=== PATIENT | male | born 1990 | race Hispanic/Latino ===

== ENCOUNTER 2020-06-29 07:10 | Inpatient (IN) | payer OTHER ==
[2020-06-29 07:43] LABS: #Basophils 0.1 thou/uL (0.0-0.2); #Lymphocytes 1.7 thou/uL (1.20-3.40); #Monocytes 0.8 thou/uL (0.11-0.59); #Neutrophils 13.2 thou/uL (1.40-6.50); %Basophils 0.4 % (0.0-1.0); %Eosinophils 0.2 % (0.0-10.0); %Lymphocytes 10.8 % (21.0-51.0); %Monocytes 5.2 % (0.0-10.0); %Neutrophils 83.4 % (42.0-75.0); Hemoglobin 14.6 g/dL (14.0-18.0); Mean Corpuscular HGB CONC 34.1 g/dL (32.0-36.0); Mean Corpuscular Hemoglobin 31.4 pg (27.0-31.0); Mean Corpuscular Volume 91.9 fL (78.0-98.0); Mean Platelet Volume 7.3 fL (7.4-10.4); Platelet Count 283 thou/uL (130-400); RBC Distribution Width 12.1 % (11.5-14.5); Red Blood Cell (RBC) Count 4.67 mill/uL (4.70-6.10); White Blood Cell (WBC) Count 15.8 thou/uL (4.8-10.8)
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
[2020-06-29] MEDS ORDERED: Dexamethasone 10 MG/ML VIAL ONE (07:45)
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
[2020-06-29 08:04] LABS: ALT (SGPT) 16 U/L (8-55); AST (SGOT) 25 U/L (5-34); Acetaminophen Less than 6.0 mcg/mL (10.0-30.0); Albumin 4.3 g/dL (3.5-5.0); Alcohol 186 mg/dL (Less than 10); Alkaline Phosphatase 63 U/L (40-110); Anion Gap 18 mmol/L (10-20); BUN (Urea Nitrogen) 10 mg/dL (8.9-20.6); Bilirubin, Total 0.5 mg/dL (0.2-1.2); Calc. Creatinine Clearance 0 mL/min (70-130); Calcium 8.5 mg/dL (7.8-10.44); Carbon Dioxide 20 mmol/L (22-29); Chloride 109 mmol/L (98-107); Globulin 2.9 g/dL (2.4-3.5); Glucose 157 mg/dL (70-105); Potassium 4.2 mmol/L (3.5-5.1); Protein, Total 7.2 g/dL (6.0-8.3); Salicylate Less than 8.0 mg/dL (15.0-30.0); Sodium 143 mmol/L (136-145)
[2020-06-29] MEDS ORDERED: Sodium Chloride 0.9% 10 ML ONE (08:11)
[2020-06-29] MEDS ORDERED: Fentanyl 100 MCG/2 ML VIAL ONE ×3 (08:12→12:50)
[2020-06-29] MEDS ORDERED: Midazolam HCl 2 mg/2 ml Vial ONE (08:12)
[2020-06-29 08:32] LABS: INR-International Normal Ratio 1.1; Prothrombin Time 14.5 sec (12.0-14.7)
[2020-06-29] MEDS ORDERED: Norepinephrine 4 MG/4 ML VIAL ONE ×2 (08:52→08:55)
[2020-06-29 09:00] LABS: Amphetamine Not Detected (NotDetected); Barbiturates Screen Not Detected (NotDetected); Benzodiazepine Screen Not Detected (NotDetected); Cocaine Metabolite Screen Detected (NotDetected); Medtox Control Line Valid? VALID (VALID); Medtox Reader # READER 4; Methadone Not Detected (NotDetected); Methamphetamine Not Detected (NotDetected); Opiate Screen Not Detected (NotDetected); Oxycodone Screen Not Detected (NotDetected); Phencyclidine (PCP) Not Detected (NotDetected); THC/Cannabinoid Screen Not Detected (NotDetected); Tricyclic Screen Not Detected (NotDetected)
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
[2020-06-29] MEDS ORDERED: Iopamidol-370 76% 500 ML 1 ML ONE ×2 (09:21→09:24)
[2020-06-29] MEDS ORDERED: Iopamidol 370 76% 100 ML VIAL ONE (09:24)
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
[2020-06-29 09:34] LABS: SARS-CoV-2 NAA Rapid Test Not Detected (NotDetected)
[2020-06-29] MEDS ORDERED: Rocuronium Bromide 50 MG/5 ML VIAL ONE (10:08)
[2020-06-29] MEDS ORDERED: SUGAMMADEX SODIUM 200 MG/2 ML VIAL ONE (11:38)
[2020-06-29] MEDS ORDERED: HumaLOG 300 UNITS/3 ML VIAL SC PRN (11:57)
[2020-06-29] MEDS ORDERED: Ondansetron ODT 4 MG TAB PO PRN (11:57)
[2020-06-29] MEDS ORDERED: Dextrose 5% in Water 1,000 ML IV PRN (11:57)
[2020-06-29] MEDS ORDERED: Dextrose 50% Abboject 50 ML SYRINGE SLOW IVP PRN (11:57)
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
[2020-06-29] MEDS ORDERED: Ondansetron HCl/PF 4 MG/2 ML Vial IVP PRN (12:11)
[2020-06-29] MEDS ORDERED: Promethazine HCl 25 MG/ML VIAL IM PRN (12:11)
[2020-06-29] MEDS ORDERED: Promethazine HCl 25 MG/ML VIAL SLOW IVP PRN (12:11)
--- NOTE | 2020-06-29 12:12 | OP ---
DATE OF PROCEDURE: 06/29/2020 OVEN TENDER BAGELS: Kirill. PROCEDURES PERFORMED: Closed reduction with Mejias-Wells tongs and traction C6-C7, anterior cervical diskectomy C6-C7, interbody arthrodesis, anterior cervical spine instrumentation C6-C7, demineralized bone matrix, local morselized autograft; posterior approach C6-C7 laminectomies, C6-C7 posterolateral arthrodesis, lateral mass screws C6-C7, demineralized bone matrix, local morselized autograft. DESCRIPTION OF PROCEDURE: The patient was brought to the operating room and intubated under fluoroscopy. We placed the Mejias-Wells tongs and placing distraction under fluoroscopy with traction also on the arms. We were able to obtain meaningful reduction of the C6-C7 fracture dislocation. It should be noted that it is very hard to visualize this level given the patient's very large body habitus. We then placed 10 pounds of traction to maintain this alignment and position the patient appropriately for anterior cervical diskectomy and fusion. Right precervical incision was made and dissected medial to the sternocleidomastoid muscle, identified the anterior cervical spinal, and the level was confirmed by x-ray. Again, given his large body habitus, the exposure was difficult and the x-ray visualization was poor. Ultimately, C6-C7 was exposed. The C7 vertebral body was badly damaged with significant fractures of the central and anterior vertebral body. The superior aspect of these fractures was debrided. It did seem that we obtained meaningful reduction of C6 and C7, but there was still moderate anterolisthesis of C6 and C7 as well as loss of substance of the C7 body. We debrided the intervertebral disk down to the level of the dura and it was clear that there has been a durotomy and CSF was leaking through this related to the trauma. We did, however, completely decompress from anteriorly. Palpation of the posterior vertebral bodies at C6 and C7 suggested reasonable alignment in this regard. There was not enough substance of the C7 superior endplate to place an intervertebral device. I placed an anterior plate at C6 and C7 using two 14-mm screws at each level. The wound was then extensively irrigated. MAC hemostasis was secured. The wound was closed in anatomic layers over drain. A Nadeem buyer tobacco head was then placed. The patient was rolled in a prone position on gel-filled chest rolls with the head fixed in a neutral position. A midline incision was made exposing C2 through T1 and the level was confirmed by x-ray, although again we could only visualize approximately C3 given the large body habitus. Exposure revealed a complete disruption of C6 posterior elements with floating bony elements. On the left, there is obvious disruption of the dura and floating neural elements in the posterior musculature. We performed complete C7 and complete C6 laminectomy and completely decompressed the central spinal canal. After complete decompression has been secured, DuraSeal fibrin sealant was laid over the durotomies. We next placed lateral mass screws on the right at C6 and C7. The left-sided lateral masses were too damaged to adequately place any hardware. After the screws have been placed at right C6 and right C7, the karyn was secured, connected by nuts, which were final tightened. The wound was then extensively irrigated, MAC hemostasis was secured. A combination of demineralized bone matrix and local morselized autograft was laid over the right posterolateral surface of the purpose of arthrodesis. Vancomycin powder was applied and the wound was closed in anatomic layers over drain. Job ID: [id number]
[2020-06-29] MEDS ORDERED: PHENYLEPHRINE-NS 100 MCG/ML 10 ML SYRINGE ONE (12:38)
[2020-06-29] MEDS ORDERED: PROPOFOL 200 MG/20 ML VIAL ONE (12:38)
[2020-06-29] MEDS ORDERED: Glycopyrrolate 0.2 MG/ML 5 ML SYRINGE ONE (12:38)
[2020-06-29] MEDS ORDERED: ePHEDrine 50 MG/ML VIAL ONE (12:38)
[2020-06-29] MEDS ORDERED: Rocuronium Bromide 10 MG/ML (10ML VIAL) ONE (12:38)
[2020-06-29] MEDS ORDERED: Lidocaine 1% PF 5 ML VIAL ONE (12:38)
[2020-06-29] MEDS ORDERED: Meperidine HCl/PF 25 MG/ML VIAL ONE (12:43)
[2020-06-29] MEDS ORDERED: Ondansetron PF 4 MG/2 ML Vial ONE (13:54)
[2020-06-29] MEDS: Ondansetron PF 4 MG/2 ML Vial IVP PRN ×2 (14:15→20:08)
--- NOTE | 2020-06-29 14:51 | CT ---
CT angiogram neck: 06/29/2020 HISTORY: Recent surgical correction of cervical spine fracture dislocation TECHNIQUE: Axial CT imaging at 1.25 mm intervals through the neck with intravenous contrast. Coronal and sagittal 3-D reformatted imaging obtained. FINDINGS: There is an obliquely oriented mildly displaced fracture at the anterior inferior aspect of the C2 vertebral body. New anterior discectomy and fusion hardware is present at the C6-7 level. There appears to be an osseous fragment measuring 9 mm in craniocaudal dimension within the facet hipolito nt on the left at C6-7 which may signify a fracture fragment involving the C7 left superior articular facet. Posterior pedicle screw with vertically oriented interlocking karyn present on the rig ht at the C6-7 level. The visualized lung apices demonstrate no acute findings. The visualized paranasal sinuses and mastoid air cells appear well-aerated. The retroantral fat and t he parapharyngeal fat appears grossly unremarkable bilaterally as do the parotid glands and the submandibular glands. There is postoperative subcutaneous gas within the neck on the right. A postope rative drain is present, terminating posterior to the right lobe of the thyroid gland. Numerous cutaneous sergio are seen posteriorly. There is a postsurgical drain posteriorly, terminating at the axial level of the C1-2 articulation. Origin of the innominate artery, right subclavian artery, right common carotid artery, left common ca rotid artery, and left subclavian artery appears unremarkable. The origin of bilateral vertebral arteries appears unremarkable. Evaluation of the proximal left vertebral artery is severely degraded by streak artifact from postope rative hardware. In addition, patient body habitus and a prevertebral hematoma associated with recent trauma limits assessment of bilateral proximal vertebral arteries. The vertebral arteries are patent. Evaluation for dissection from the axial level of the vertebral artery origin through the axial level of the C5-6 interspace is nondiagnostic. Cephalad to this level bilateral vertebral arter ies appear patent. On the basis of NASCET criteria there is no hemodynamically significant stenosis involving the common carotid artery or the internal carotid artery on either side. The internal carotid artery and common carotid artery appear grossly unremarkable bilaterally. IMPRESSION: Postoperative changes treating fracture dislocation at C6-7 as above. C2 vertebral body f racture again noted. Of note, the vertebral arteries cannot be adequately assessed from there origin through the C5-6 axia l level secondary to streak artifact from new postoperative hardware as well as beam hardening artifact associated with the patient body habitus and obscuration on the basis of prevertebral hemato ma. A follow-up CT angiogram or conventional angiogram would be required to evaluate the proximal vertebral arteries. Cephalad to the postoperative level the vertebral arteries appear intact.
[2020-06-29] MEDS: Sodium Chloride 0.9% 1,000 ML IV SCH ×2 (14:52→20:41)
[2020-06-29 14:58] VITALS: BMI 44.6
[2020-06-29] MEDS ORDERED: FLU VACC QS2020-21(6MOS UP)/PF 60 MCG/0.5 ML SYRINGE IM ONE (15:30)
[2020-06-29] MEDS: Acetaminophen 500 MG TAB PO SCH ×3 (15:48→21:23)
[2020-06-29] MEDS: traMADol HCl 50 MG TAB PO SCH ×3 (15:48→21:24)
[2020-06-29] MEDS: Oxazepam 10 MG CAP PO SCH ×2 (15:48→20:08)
[2020-06-29] MEDS: CEFAZOLIN 2 GM in Premix Bag 1 BAG IVPB SCH ×2 (15:49→21:23)
[2020-06-29] MEDS: Famotidine/PF 20 mg/2ml Vial SLOW IVP SCH (20:08)
[2020-06-29] MEDS: Gabapentin 300 MG CAP PO SCH (20:08)
[2020-06-29] MEDS ORDERED: Sodium Chloride 0.9% 1,000 ML IV SCH (21:45)
[2020-06-29] MEDS: traMADol HCl 50 MG TAB PO PRN (23:57)
[2020-06-30] MEDS: Morphine 2 MG/ML VIAL SLOW IVP PRN (02:59)
[2020-06-30] MEDS: traMADol HCl 50 MG TAB PO SCH ×4 (04:23→21:56)
[2020-06-30] MEDS: Acetaminophen 500 MG TAB PO SCH ×4 (04:24→21:57)
[2020-06-30] MEDS: Oxazepam 10 MG CAP PO SCH ×3 (04:36→19:59)
[2020-06-30 04:38] LABS: #Basophils 0.1 thou/uL (0.0-0.2); #Lymphocytes 1.8 thou/uL (1.20-3.40); #Monocytes 1.5 thou/uL (0.11-0.59); #Neutrophils 9.9 thou/uL (1.40-6.50); %Basophils 0.5 % (0.0-1.0); %Lymphocytes 13.5 % (21.0-51.0); %Monocytes 11.1 % (0.0-10.0); %Neutrophils 74.9 % (42.0-75.0); Hemoglobin 11.8 g/dL (14.0-18.0); Mean Corpuscular HGB CONC 33.4 g/dL (32.0-36.0); Mean Corpuscular Hemoglobin 30.7 pg (27.0-31.0); Mean Corpuscular Volume 91.7 fL (78.0-98.0); Mean Platelet Volume 7.2 fL (7.4-10.4); Platelet Count 237 thou/uL (130-400); RBC Distribution Width 12.2 % (11.5-14.5); Red Blood Cell (RBC) Count 3.85 mill/uL (4.70-6.10); White Blood Cell (WBC) Count 13.3 thou/uL (4.8-10.8)
[2020-06-30] MEDS: Sodium Chloride 0.9% 1,000 ML IV SCH ×2 (04:44→09:01)
[2020-06-30 04:58] LABS: Phosphorus 3.7 mg/dL (2.3-4.7)
[2020-06-30 05:01] LABS: Anion Gap 14 mmol/L (10-20); BUN (Urea Nitrogen) 15 mg/dL (8.9-20.6); Calc. Creatinine Clearance 172 mL/min (70-130); Calcium 7.4 mg/dL (7.8-10.44); Carbon Dioxide 22 mmol/L (22-29); Chloride 106 mmol/L (98-107); Glucose 126 mg/dL (70-105); Magnesium 1.5 mg/dL (1.6-2.6); Sodium 138 mmol/L (136-145)
[2020-06-30] MEDS ORDERED: Magnesium Sulfate 3 GM in Sodium Chloride 0.9% 250 ML 250 ML IVPB SCH (05:30)
[2020-06-30] MEDS: CEFAZOLIN 2 GM in Premix Bag 1 BAG IVPB SCH ×3 (05:48→21:57)
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
[2020-06-30] MEDS: Famotidine/PF 20 mg/2ml Vial SLOW IVP SCH ×2 (08:42→19:59)
[2020-06-30] MEDS: Gabapentin 300 MG CAP PO SCH ×2 (08:43→19:59)
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
--- NOTE | 2020-06-30 09:43 | PRG ---
DATE OF SERVICE: 06/30/2020 SUBJECTIVE: The patient is now postoperative day #1, status post C6-C7 fracture dislocation requiring C6-C7 anterior and posterior decompression and fusion. We did get a CTA following the surgery. Unfortunately, this is not diagnostic considering streak artifact at the level of the hardware. He had few KING drains placed intraoperatively. The anterior KING put out 110 mL overnight and the posterior KING put out 60 mL overnight. The patient has been monitored closely in the ICU without overnight events. I visited the patient at the ICU this morning. OBJECTIVE: On exam, his vital signs are stable. He has good motor function in the proximal arms, but is quite weak particularly in the hands and wrist. He has some dysesthesias in the hand. He has very minimal sensation from approximately the nipple line down. No appreciated motor function in the lower extremities at this time. His Nikolski J collar appears to be fitting appropriately. PLAN: We will leave his KING drains in place and would continue to recommend that we hold any anticoagulation for now. I feel that he can be transitioned out the ICU to the Med/Surg floor, and we will begin to mobilize slowly. The patient will require rehab and we will consult Case Management to assist with this process. Job ID: [id number]
--- NOTE | 2020-06-30 10:15 | PRG ---
DATE OF SERVICE: 06/30/2020 SUBJECTIVE: Mr. Petersen is resting comfortably. He is having neck pain. He has good proximal strength in the arms and reasonable C7 level of motor function. He has complete distal paraplegia and sensory loss. CT angiography was limited by artifact, but did not reveal any significant vascular lesion. The degree of alignment of the cervical spine is excellent. IMPRESSION AND PLAN: Fracture dislocation of C6-7 with paraplegia. Structural surgical result is satisfactory, but I am not optimistic for neurologic recovery. We will begin rehab planning and remove the drains when able. Job ID: [id number]
[2020-06-30] MEDS: Cyclobenzaprine 10 MG TAB PO PRN ×2 (11:55→21:57)
[2020-06-30] MEDS: traMADol HCl 50 MG TAB PO PRN (19:58)
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
[2020-06-30] MEDS ORDERED: Sodium Chloride 0.65% Nasal 44 ML BOT EA NARE PRN (23:57)
[2020-07-01] MEDS: Morphine 2 MG/ML VIAL SLOW IVP PRN (00:54)
[2020-07-01] MEDS: Sodium Chloride 0.9% 1,000 ML IV SCH ×2 (00:55→04:39)
[2020-07-01] MEDS: Oxazepam 10 MG CAP PO SCH ×3 (04:37→21:04)
[2020-07-01] MEDS: Acetaminophen 500 MG TAB PO SCH ×4 (04:37→21:04)
[2020-07-01] MEDS: traMADol HCl 50 MG TAB PO PRN (04:38)
[2020-07-01] MEDS: traMADol HCl 50 MG TAB PO SCH ×5 (04:38→21:04)
[2020-07-01] MEDS: CEFAZOLIN 2 GM in Premix Bag 1 BAG IVPB SCH ×3 (04:59→21:05)
--- NOTE | 2020-07-01 07:20 | PRG ---
DATE OF SERVICE: 07/01/2020 SUBJECTIVE: The patient is now postoperative day #2, status post anterior and posterior C6-C7 decompression and fusion. He has had [address] Output has trended down, it now appears more consistent with CSF rather than blood. He reports subjective increased sensation in the lower extremities. OBJECTIVE: On exam this morning, he is awake, no acute distress. Has been afebrile. He has good proximal motion of the upper extremities, but is quite weak in the hands and the wrists. In the lower extremities, no appreciated motor function is noted. No sensation present to light touch. Incisions are clean, dry, and intact. There is serosanguineous fluid in both of the bulbs. PLAN: We will go ahead and remove both his KING drains. We will continue to work with PT, OT, and patient will need spinal rehab. Job ID: [id number]
[2020-07-01] MEDS: Gabapentin 300 MG CAP PO SCH (10:00)
[2020-07-01] MEDS: Folic Acid 1 MG TAB PO SCH (10:00)
[2020-07-01] MEDS: Famotidine 20 MG TAB PO SCH ×2 (10:01→21:05)
[2020-07-01] MEDS: Thiamine 100 MG TAB PO SCH (10:02)
[2020-07-01] MEDS: Multivit, Therapeutic 1 TAB PO SCH (10:04)
[2020-07-01] MEDS: Pregabalin 75 MG CAP PO SCH (21:04)
[2020-07-02] MEDS: Acetaminophen 500 MG TAB PO SCH ×4 (05:00→21:27)
[2020-07-02] MEDS: traMADol HCl 50 MG TAB PO SCH ×4 (05:00→21:26)
[2020-07-02] MEDS: CEFAZOLIN 2 GM in Premix Bag 1 BAG IVPB SCH (05:01)
[2020-07-02] MEDS: Oxazepam 10 MG CAP PO SCH ×3 (05:01→21:26)
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
--- NOTE | 2020-07-02 07:50 | PRG ---
DATE OF SERVICE: 07/02/2020 SUBJECTIVE: I visited the patient on the floor. He is resting comfortably overnight. He has had no additional changes in his motor or sensation. His KING drains were removed yesterday and he has not had any incisional drainage issues. OBJECTIVE: This morning, vital signs are stable. He has been afebrile overnight. Incision is clean, dry, and intact. He is able to move the proximal arms and the shoulders, the elbows easily with good strength. He continues to be quite weak in the hands. No appreciated motor function in the lower extremities. PLAN: We will continue to have him work with PT, OT here, C-collar at all times. The patient will need spinal rehab. Ok to start lovenox for DVT PPx today. Job ID: [id number] [facility]
[2020-07-02] MEDS: Famotidine 20 MG TAB PO SCH ×2 (08:42→21:26)
[2020-07-02] MEDS: Multivit, Therapeutic 1 TAB PO SCH (08:42)
[2020-07-02] MEDS: traMADol HCl 50 MG TAB PO PRN (08:43)
[2020-07-02] MEDS: Folic Acid 1 MG TAB PO SCH (08:43)
[2020-07-02] MEDS: Pregabalin 75 MG CAP PO SCH ×2 (08:43→21:27)
[2020-07-02] MEDS: Thiamine 100 MG TAB PO SCH (08:43)
[2020-07-02] MEDS: Enoxaparin Sodium 30 MG/0.3 ML SYRINGE SC SCH ×2 (09:03→21:31)
--- NOTE | 2020-07-02 09:56 | PRG ---
DATE OF SERVICE: 07/02/2020 SUBJECTIVE: Mr. Petersen is resting comfortably. There has been no meaningful change in his neurologic exam. His drains have been removed. I believe he can be started on chemical anticoagulation for DVT prophylaxis at this time and also discussed with Dr. Higginbotham the possibility of IVC filter as well. He is medically safe for transfer to rehab and I will arrange a 4-week followup x-ray. Job ID: [id number]
[2020-07-03] MEDS: Acetaminophen 500 MG TAB PO SCH ×4 (03:46→20:59)
[2020-07-03] MEDS: Oxazepam 10 MG CAP PO SCH ×3 (03:46→20:59)
[2020-07-03] MEDS: traMADol HCl 50 MG TAB PO SCH ×4 (03:47→21:00)
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
[2020-07-03 06:48] LABS: Hemoglobin 11.6 g/dL (14.0-18.0); Mean Corpuscular HGB CONC 32.9 g/dL (32.0-36.0); Mean Corpuscular Hemoglobin 30.3 pg (27.0-31.0); Mean Corpuscular Volume 92.1 fL (78.0-98.0); Mean Platelet Volume 7.1 fL (7.4-10.4); Platelet Count 208 thou/uL (130-400); RBC Distribution Width 11.7 % (11.5-14.5); Red Blood Cell (RBC) Count 3.83 mill/uL (4.70-6.10); White Blood Cell (WBC) Count 8.2 thou/uL (4.8-10.8)
[2020-07-03 06:52] LABS: Anion Gap 13 mmol/L (10-20); BUN (Urea Nitrogen) 11 mg/dL (8.9-20.6); Calc. Creatinine Clearance 205 mL/min (70-130); Calcium 8.1 mg/dL (7.8-10.44); Carbon Dioxide 30 mmol/L (22-29); Chloride 100 mmol/L (98-107); Glucose 103 mg/dL (70-105); Magnesium 2.1 mg/dL (1.6-2.6); Phosphorus 4.9 mg/dL (2.3-4.7); Potassium 4.2 mmol/L (3.5-5.1); Sodium 139 mmol/L (136-145)
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
[2020-07-03 08:43] LABS: Band 5 % (5-11); Eosinophils 3 % (0-10); Lymphocytes 27 % (21-51); MDiff Complete? YES; Monocytes 3 % (0-10); Neutrophil 59 % (42-75); Platelet Morphology Comment Appears Adequate; Polychromasia SLIGHT = 2-3 cells (100X) (0-2/hpf); Reactive Lymphocytes 3 % (0-10)
[2020-07-03] MEDS: Famotidine 20 MG TAB PO SCH ×2 (09:47→20:59)
[2020-07-03] MEDS: Folic Acid 1 MG TAB PO SCH (09:47)
[2020-07-03] MEDS: Enoxaparin Sodium 30 MG/0.3 ML SYRINGE SC SCH ×2 (09:47→21:00)
[2020-07-03] MEDS: Polyethylene Glycol 3350 17 GM Packet PO SCH (09:47)
[2020-07-03] MEDS: Pregabalin 75 MG CAP PO SCH ×2 (09:48→21:00)
[2020-07-03] MEDS: Senokot S 8.6-50 MG TAB PO SCH ×2 (09:48→20:59)
[2020-07-03] MEDS: Multivit, Therapeutic 1 TAB PO SCH (09:48)
[2020-07-03] MEDS: Thiamine 100 MG TAB PO SCH (09:49)
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
[2020-07-04] MEDS: traMADol HCl 50 MG TAB PO SCH ×4 (05:02→21:13)
[2020-07-04] MEDS: Acetaminophen 500 MG TAB PO SCH ×4 (05:02→21:13)
[2020-07-04] MEDS: Oxazepam 10 MG CAP PO SCH ×3 (05:02→23:14)
[2020-07-04] MEDS: Pregabalin 75 MG CAP PO SCH ×2 (08:15→21:13)
[2020-07-04] MEDS: Senokot S 8.6-50 MG TAB PO SCH ×2 (08:15→21:13)
[2020-07-04] MEDS: Enoxaparin Sodium 30 MG/0.3 ML SYRINGE SC SCH ×2 (08:15→21:12)
[2020-07-04] MEDS: Famotidine 20 MG TAB PO SCH ×2 (08:15→21:13)
[2020-07-04] MEDS: Multivit, Therapeutic 1 TAB PO SCH (08:15)
[2020-07-04] MEDS: Polyethylene Glycol 3350 17 GM Packet PO SCH (08:15)
[2020-07-04] MEDS: Thiamine 100 MG TAB PO SCH (08:16)
[2020-07-04] MEDS: Folic Acid 1 MG TAB PO SCH (08:16)
[2020-07-04] MEDS ORDERED: Bisacodyl 10 MG SUPP PR SCH (11:40)
--- NOTE | 2020-07-04 15:57 | RAD ---
EXAM: Chest one view: HISTORY: Fever COMPARISON: 06/30/2020 FINDINGS: Heart size: Within normal limits. Lungs: Clear of acute process. No evidence for confluent lobar pneumonia, significant pleural effusion, acute edema, or pneumothorax , or other significant acute process. IMPRESSION: No significant acute intrathoracic disease. Stable exam.
[2020-07-04 18:04] LABS: Bacteria/HPF None Seen HPF (None Seen); RBC/HPF 0-3 HPF (0-3); Squamous Epithelial None Seen HPF (0-3); WBC/HPF 0-3 HPF (0-3)
[2020-07-04 18:07] LABS: Bilirubin Negative (Negative); Blood, Urine Negative (Negative); Clarity Clear (Clear); Glucose, Urine (Dipstick) Negative (Negative); Ketone, Urine Negative (Negative); Leukocyte Negative (Negative); Nitrite Negative (Negative); Protein, Urine (Dipstick) Negative (Neg-Trace); Specific Gravity, Urine 1.015 (1.005-1.030); Urobilinogen 0.2 mg/dL (Less than 2); pH, Urine 6.5 (5.0-9.0)
[2020-07-04 18:08] LABS: Urine Culture Reflex No No
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
[2020-07-04] MEDS: Cyclobenzaprine 10 MG TAB PO PRN (19:45)
[2020-07-05] MEDS: Zolpidem Tartrate 5 MG TAB PO PRN (00:47)
[2020-07-05] MEDS: traMADol HCl 50 MG TAB PO PRN (01:41)
[2020-07-05] MEDS: Acetaminophen 500 MG TAB PO SCH ×4 (04:57→21:11)
[2020-07-05] MEDS: traMADol HCl 50 MG TAB PO SCH ×4 (04:58→21:13)
[2020-07-05] MEDS: Oxazepam 10 MG CAP PO SCH ×3 (05:00→18:21)
[2020-07-05 06:00] LABS: #Basophils 0.1 thou/uL (0.0-0.2); #Eosinphils 0.1 thou/uL (0.0-0.7); #Lymphocytes 1.9 thou/uL (1.20-3.40); #Neutrophils 5.3 thou/uL (1.40-6.50); %Basophils 0.9 % (0.0-1.0); %Eosinophils 0.9 % (0.0-10.0); %Lymphocytes 23.1 % (21.0-51.0); %Monocytes 11.9 % (0.0-10.0); %Neutrophils 63.3 % (42.0-75.0); Hemoglobin 11.5 g/dL (14.0-18.0); Mean Corpuscular Hemoglobin 30.3 pg (27.0-31.0); Mean Corpuscular Volume 91.7 fL (78.0-98.0); Mean Platelet Volume 6.8 fL (7.4-10.4); Platelet Count 274 thou/uL (130-400); RBC Distribution Width 12.2 % (11.5-14.5); Red Blood Cell (RBC) Count 3.81 mill/uL (4.70-6.10); White Blood Cell (WBC) Count 8.3 thou/uL (4.8-10.8)
[2020-07-05 06:18] LABS: Anion Gap 15 mmol/L (10-20); BUN (Urea Nitrogen) 17 mg/dL (8.9-20.6); Calc. Creatinine Clearance 190 mL/min (70-130); Calcium 8.3 mg/dL (7.8-10.44); Carbon Dioxide 27 mmol/L (22-29); Chloride 100 mmol/L (98-107); Glucose 117 mg/dL (70-105); Magnesium 2.4 mg/dL (1.6-2.6); Phosphorus 4.5 mg/dL (2.3-4.7); Potassium 4.7 mmol/L (3.5-5.1); Sodium 137 mmol/L (136-145)
[2020-07-05] MEDS: Polyethylene Glycol 3350 17 GM Packet PO SCH (08:07)
[2020-07-05] MEDS: Pregabalin 75 MG CAP PO SCH ×2 (08:07→21:12)
[2020-07-05] MEDS: Multivit, Therapeutic 1 TAB PO SCH (08:07)
[2020-07-05] MEDS: Thiamine 100 MG TAB PO SCH (08:07)
[2020-07-05] MEDS: Famotidine 20 MG TAB PO SCH ×2 (08:07→21:12)
[2020-07-05] MEDS: Senokot S 8.6-50 MG TAB PO SCH ×2 (08:08→21:11)
[2020-07-05] MEDS: Enoxaparin Sodium 30 MG/0.3 ML SYRINGE SC SCH ×2 (08:08→21:12)
[2020-07-05] MEDS: Folic Acid 1 MG TAB PO SCH (08:08)
[2020-07-05] MEDS ORDERED: Bisacodyl 10 MG SUPP PR SCH (10:00)
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
[2020-07-06] MEDS: Cyclobenzaprine 10 MG TAB PO PRN (00:19)
[2020-07-06] MEDS: Oxazepam 10 MG CAP PO SCH ×5 (00:19→23:18)
[2020-07-06] MEDS: traMADol HCl 50 MG TAB PO SCH ×4 (05:01→20:57)
[2020-07-06] MEDS: Acetaminophen 500 MG TAB PO SCH ×4 (05:01→20:58)
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
[2020-07-06] MEDS: Bisacodyl 10 MG SUPP PR SCH (09:32)
[2020-07-06] MEDS: Enoxaparin Sodium 30 MG/0.3 ML SYRINGE SC SCH ×2 (09:32→20:13)
[2020-07-06] MEDS: Multivit, Therapeutic 1 TAB PO SCH (09:32)
[2020-07-06] MEDS: Folic Acid 1 MG TAB PO SCH (09:32)
[2020-07-06] MEDS: Polyethylene Glycol 3350 17 GM Packet PO SCH (09:32)
[2020-07-06] MEDS: Thiamine 100 MG TAB PO SCH (09:32)
[2020-07-06] MEDS: Famotidine 20 MG TAB PO SCH ×2 (09:32→20:13)
[2020-07-06] MEDS: Senokot S 8.6-50 MG TAB PO SCH ×2 (09:32→20:12)
[2020-07-06] MEDS: Pregabalin 75 MG CAP PO SCH ×2 (09:34→20:13)
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
[2020-07-06] MEDS: Zolpidem Tartrate 5 MG TAB PO PRN (23:18)
[2020-07-07] MEDS: Cyclobenzaprine 10 MG TAB PO PRN ×2 (00:26→20:13)
[2020-07-07] MEDS: traMADol HCl 50 MG TAB PO SCH ×4 (03:59→22:38)
[2020-07-07] MEDS: Acetaminophen 500 MG TAB PO SCH ×4 (03:59→22:38)
[2020-07-07] MEDS: Oxazepam 10 MG CAP PO SCH ×4 (05:22→23:18)
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
[2020-07-07] MEDS: Polyethylene Glycol 3350 17 GM Packet PO SCH (09:07)
[2020-07-07] MEDS: Multivit, Therapeutic 1 TAB PO SCH (09:08)
[2020-07-07] MEDS: Enoxaparin Sodium 30 MG/0.3 ML SYRINGE SC SCH ×2 (09:08→20:13)
[2020-07-07] MEDS: Thiamine 100 MG TAB PO SCH (09:08)
[2020-07-07] MEDS: Folic Acid 1 MG TAB PO SCH (09:08)
[2020-07-07] MEDS: Senokot S 8.6-50 MG TAB PO SCH ×2 (09:08→20:13)
[2020-07-07] MEDS: Pregabalin 75 MG CAP PO SCH ×2 (09:09→20:13)
[2020-07-07] MEDS: Bisacodyl 10 MG SUPP PR SCH (09:09)
[2020-07-07] MEDS: Famotidine 20 MG TAB PO SCH ×2 (09:09→20:13)
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
[2020-07-07] MEDS: Zolpidem Tartrate 5 MG TAB PO PRN (22:39)
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
[2020-07-08] MEDS: Acetaminophen 500 MG TAB PO SCH ×4 (04:54→21:00)
[2020-07-08] MEDS: traMADol HCl 50 MG TAB PO SCH ×4 (04:54→21:00)
[2020-07-08] MEDS: Oxazepam 10 MG CAP PO SCH ×4 (05:00→23:33)
[2020-07-08] MEDS: traMADol HCl 50 MG TAB PO PRN (06:56)
[2020-07-08] MEDS: Senokot S 8.6-50 MG TAB PO SCH ×2 (10:16→20:49)
[2020-07-08] MEDS: Polyethylene Glycol 3350 17 GM Packet PO SCH (10:16)
[2020-07-08] MEDS: Famotidine 20 MG TAB PO SCH ×2 (10:17→20:50)
[2020-07-08] MEDS: Folic Acid 1 MG TAB PO SCH (10:18)
[2020-07-08] MEDS: Multivit, Therapeutic 1 TAB PO SCH (10:18)
[2020-07-08] MEDS: Thiamine 100 MG TAB PO SCH (10:18)
[2020-07-08] MEDS: Enoxaparin Sodium 30 MG/0.3 ML SYRINGE SC SCH ×2 (10:20→20:49)
[2020-07-08] MEDS: Pregabalin 75 MG CAP PO SCH ×2 (10:20→20:50)
[2020-07-08] MEDS: Bisacodyl 10 MG SUPP PR SCH (10:21)
[2020-07-08] MEDS: Melatonin 3 MG TAB PO SCH (20:49)
[2020-07-08] MEDS: Zolpidem Tartrate 5 MG TAB PO PRN (22:14)
--- NOTE | 2020-07-09 00:15 | PRG ---
DATE OF SERVICE: SUBJECTIVE: Patient was seen during evening rounds; awake, alert, in no distress. The patient is mildly anxious and states that he has been having trouble sleeping. The patient's pain is controlled at this time. The patient continues to tolerate a regular diet. Urinary output is adequate. Soni catheter remains in place. The patient was started on Ambien for sleep last night and melatonin was started tonight. The patient is just now receiving these medications. OBJECTIVE: VITAL SIGNS: Stable and patient remains afebrile. PLAN: Unchanged. Continue supportive care. The patient is pending placement to a neuro rehab facility in [place]. The patient is ready for discharge at this time. Job ID: [id number]
[2020-07-09] MEDS: Acetaminophen 500 MG TAB PO SCH ×4 (03:12→21:35)
[2020-07-09] MEDS: traMADol HCl 50 MG TAB PO SCH ×4 (03:13→21:35)
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
[2020-07-09] MEDS: Oxazepam 10 MG CAP PO SCH ×3 (05:41→20:31)
[2020-07-09] MEDS: Polyethylene Glycol 3350 17 GM Packet PO SCH (09:42)
[2020-07-09] MEDS: Pregabalin 75 MG CAP PO SCH ×2 (09:44→20:28)
[2020-07-09] MEDS: Enoxaparin Sodium 30 MG/0.3 ML SYRINGE SC SCH ×2 (09:44→20:27)
[2020-07-09] MEDS: Folic Acid 1 MG TAB PO SCH (09:45)
[2020-07-09] MEDS: Famotidine 20 MG TAB PO SCH ×2 (09:45→20:26)
[2020-07-09] MEDS: Senokot S 8.6-50 MG TAB PO SCH ×2 (09:45→20:26)
[2020-07-09] MEDS: Multivit, Therapeutic 1 TAB PO SCH (09:46)
[2020-07-09] MEDS: Thiamine 100 MG TAB PO SCH (09:47)
[2020-07-09] MEDS: Bisacodyl 10 MG SUPP PR SCH (09:47)
[2020-07-09] MEDS ORDERED: Milk Of Magnesia 30 ML UDCUP PO SCH (12:15)
[2020-07-09] MEDS: Cyclobenzaprine 10 MG TAB PO PRN (19:23)
[2020-07-09] MEDS: Melatonin 3 MG TAB PO SCH (20:27)
[2020-07-10] MEDS: traMADol HCl 50 MG TAB PO SCH ×4 (03:07→21:20)
[2020-07-10] MEDS: Acetaminophen 500 MG TAB PO SCH ×4 (03:08→21:19)
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
[2020-07-10] MEDS: Enoxaparin Sodium 30 MG/0.3 ML SYRINGE SC SCH ×2 (09:10→21:20)
[2020-07-10] MEDS: Polyethylene Glycol 3350 17 GM Packet PO SCH (09:10)
[2020-07-10] MEDS: Famotidine 20 MG TAB PO SCH ×2 (09:10→21:19)
[2020-07-10] MEDS: Multivit, Therapeutic 1 TAB PO SCH (09:11)
[2020-07-10] MEDS: Bisacodyl 10 MG SUPP PR SCH (09:11)
[2020-07-10] MEDS: Pregabalin 75 MG CAP PO SCH ×2 (09:12→21:20)
[2020-07-10] MEDS: Oxazepam 10 MG CAP PO SCH ×2 (09:12→21:20)
[2020-07-10] MEDS: Thiamine 100 MG TAB PO SCH (09:12)
[2020-07-10] MEDS: Folic Acid 1 MG TAB PO SCH (09:16)
[2020-07-10] MEDS: Senokot S 8.6-50 MG TAB PO SCH ×2 (09:17→21:19)
[2020-07-10] MEDS: Melatonin 3 MG TAB PO SCH (21:19)
[2020-07-10] MEDS: Zolpidem Tartrate 5 MG TAB PO PRN (21:20)
[2020-07-11] MEDS: traMADol HCl 50 MG TAB PO SCH ×4 (03:12→22:12)
[2020-07-11] MEDS: Acetaminophen 500 MG TAB PO SCH ×4 (03:12→22:12)
[2020-07-11 06:28] LABS: SARS-CoV-2 MS2 Positive; SARS-CoV-2 N Gene Negative; SARS-CoV-2 S Gene Negative; SARS-CoV-2 by NAA Not Detected (NotDetected); SARS-CoV-2 orf1ab Negative
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
[2020-07-11] MEDS: Polyethylene Glycol 3350 17 GM Packet PO SCH (09:34)
[2020-07-11] MEDS: Enoxaparin Sodium 30 MG/0.3 ML SYRINGE SC SCH ×2 (09:34→22:12)
[2020-07-11] MEDS: Folic Acid 1 MG TAB PO SCH (09:35)
[2020-07-11] MEDS: Multivit, Therapeutic 1 TAB PO SCH (09:35)
[2020-07-11] MEDS: Pregabalin 75 MG CAP PO SCH ×2 (09:35→22:11)
[2020-07-11] MEDS: Thiamine 100 MG TAB PO SCH (09:36)
[2020-07-11] MEDS: Senokot S 8.6-50 MG TAB PO SCH ×2 (09:36→22:23)
[2020-07-11] MEDS: Famotidine 20 MG TAB PO SCH ×2 (09:36→22:11)
[2020-07-11] MEDS: Oxazepam 10 MG CAP PO SCH ×2 (09:46→22:11)
[2020-07-11] MEDS: Bisacodyl 10 MG SUPP PR SCH (16:05)
[2020-07-11] MEDS: Zolpidem Tartrate 5 MG TAB PO PRN (22:11)
[2020-07-11] MEDS: Melatonin 3 MG TAB PO SCH (22:11)
[2020-07-12] MEDS: Acetaminophen 500 MG TAB PO SCH ×3 (05:13→16:16)
[2020-07-12] MEDS: traMADol HCl 50 MG TAB PO SCH ×3 (05:14→16:17)
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
[2020-07-12] MEDS: Polyethylene Glycol 3350 17 GM Packet PO SCH (09:25)
[2020-07-12] MEDS: Multivit, Therapeutic 1 TAB PO SCH (09:26)
[2020-07-12] MEDS: Pregabalin 75 MG CAP PO SCH (09:26)
[2020-07-12] MEDS: Bisacodyl 10 MG SUPP PR SCH (09:26)
[2020-07-12] MEDS: Famotidine 20 MG TAB PO SCH (09:26)
[2020-07-12] MEDS: Folic Acid 1 MG TAB PO SCH (09:26)
[2020-07-12] MEDS: Thiamine 100 MG TAB PO SCH (09:26)
[2020-07-12] MEDS: Senokot S 8.6-50 MG TAB PO SCH (09:26)
[2020-07-12] MEDS: Oxazepam 10 MG CAP PO SCH (09:26)
[2020-07-12] MEDS: Enoxaparin Sodium 30 MG/0.3 ML SYRINGE SC SCH (09:28)
[2020-07-12 16:03] VITALS: BP 126/69; TEMP 98.7
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
== END 2020-07-12 17:18 | DRG 29 ==
LOC: ERS 07:10 → SDC 08:28 → CCU 14:28 → SURG B 06-30 13:27
PROVIDERS: ADMIT Surgery; ATTEND Physician Assistant
PROC: 0RG10A0 Fusion of Cervical Vertebral Joint with Interbody Fusion Device, Anterior Approach, Anterior Column, Open Approach (ICD-10-PCS; principal; 2020-06-29)
PROC: 0RG1071 Fusion of Cervical Vertebral Joint with Autologous Tissue Substitute, Posterior Approach, Posterior Column, Open Approach (ICD-10-PCS; 2020-06-29)
PROC: 0RB30ZZ Excision of Cervical Vertebral Disc, Open Approach (ICD-10-PCS; 2020-06-29)
PROC: 01N10ZZ Release Cervical Nerve, Open Approach (ICD-10-PCS; 2020-06-29)
PROC: 3E033XZ Introduction of Vasopressor into Peripheral Vein, Percutaneous Approach (ICD-10-PCS; 2020-06-29)
DX: S14.11 Complete lesion of cervical spinal cord (principal); S22.019A Unspecified fracture of first thoracic vertebra, initial encounter for closed fracture; G82.20 Paraplegia, unspecified; G96.09 Other spinal cerebrospinal fluid leak; S12.500A Unspecified displaced fracture of sixth cervical vertebra, initial encounter for closed fracture; S12.600A Unspecified displaced fracture of seventh cervical vertebra, initial encounter for closed fracture; S12.100A Unspecified displaced fracture of second cervical vertebra, initial encounter for closed fracture; Z20.828 Contact with and (suspected) exposure to other viral communicable diseases; F17.210 Nicotine dependence, cigarettes, uncomplicated; S40.811A Abrasion of right upper arm, initial encounter; S41.111A Laceration without foreign body of right upper arm, initial encounter; S12.400A Unspecified displaced fracture of fifth cervical vertebra, initial encounter for closed fracture; K59.00 Constipation, unspecified; Z23 Encounter for immunization; Y92.410 Unspecified street and highway as the place of occurrence of the external cause; V49.9XXA Car occupant (driver) (passenger) injured in unspecified traffic accident, initial encounter
CPT/HCPCS: 36415; 36416; 51702; 70450; 70498; 71045; 71260; 72125; 72170; 74177; 76000; 80048; 80053; 80306; 80307; 81001; 83735; 84100; 85007; 85025; 85027; 85610; 85730; 86850; 86900; 86901; 87040; 87086; 87635; 94640; 96374; C1713; C1768; C1776; G0390; J0690; J1100; J1650; J2175; J2250; J2270; J2405; J2704; J3010; J3370; J3475; J3490; J7050; J7620; Q9967; S0028; U0002; U0003